=== PATIENT | male | born 1995 | race Caucasian/White ===

== ENCOUNTER 2021-05-19 08:40 | Emergency (ER) | payer BC, OTHER ==
[~2021-05-19] VITALS: Ht 177.8 cm; Wt 68.0 kg
[2021-05-19 10:01] VITALS: BP 124/82
== END 2021-05-19 10:41 | disposition home or self-care (01) ==
LOC: ER 08:40
DX: S61.052A Open bite of left thumb without damage to nail, initial encounter (principal); W55.01XA Bitten by cat, initial encounter; Y93.89 Activity, other specified; Y92.89 Other specified places as the place of occurrence of the external cause; Y99.8 Other external cause status